=== PATIENT | female | born 1980 | race Caucasian/White ===

== ENCOUNTER 2022-10-06 17:18 | Emergency (ER) | payer BC, SELFPAY ==
[2022-10-06 17:30] VITALS: BP 139/83; PULSE 64; RESP 18; TEMP 36.3; O2SAT 98; BMI 43.8
--- NOTE | 2022-10-06 18:24 | CRLHL7_ITS ---
For Patients: As a result of the Century Cures Act, medical imaging exams and procedure reports are released immediately into your electronic medical record. You may view this report before your referring provider. If you have questions, please contact your health care provider. INDICATION: Right upper quadrant pain. TECHNIQUE: Ultrasound abdomen limited. Sonographic images of the right upper quadrant were obtained using carlos-scale and color Doppler images. COMPARISON: None. FINDINGS: Liver: Normal in size and echotexture. No masses. No intrahepatic biliary dilatation. Gallbladder: Gallbladder contracted. Mobile, echogenic gallstones. Gallbladder wall measures 5 mm. No pericholecystic fluid. Common bile duct: 3 mm. Pancreas: Unremarkable. Right kidney: Length 10.9 cm. Normal echotexture and cortex. No masses, stones, or hydronephrosis. Vasculature: Proximal abdominal aorta and IVC are unremarkable. Main portal vein patent with normal flow toward the liver. IMPRESSION: 1. Cholelithiasis with contracted gallbladder. No imaging evidence of acute cholecystitis or abnormal biliary dilatation. 2. Slightly echogenic liver parenchyma relative to the adjacent renal cortex, indicating possible mild fatty infiltration. Liver size upper range of normal. Dictated by Hakeem Rascon MD @ 10/06/2022 7:26:49 PM Dictated by: Hakeem Rascon MD @ 10/06/2022 19:26:55 (Electronically Signed)
--- NOTE | 2022-10-06 18:25 | ED_ITS ---
HPI - Abdominal Pain General Chief Complaint: Abdominal Pain Stated Complaint: Upper Abdominal Pain-getting worse post childbirth Time Seen by Provider: 10/06/22 18:06 History of Present Illness HPI narrative: This 42-year-old female comes in reporting upper epigastric pain that occurs at when taking any food and sometimes also wakes her up in the night. Currently she does not have any pain. She states this pain began about 12 weeks ago after delivering her baby. She delivered a child vaginally and thought that her abdominal discomfort was related to that and should resolve over time. This pain is not resolved and sometimes it seems worsened. She denies having any fevers, nausea, vomiting, diarrhea, or dysuria. Related Data Previous Rx's Medication Instructions Recorded hydrocodone 5 mg-acetaminophen 325 1 tab PO Q4-6H PRN pain #20 tabs 10/06/22 mg tablet ondansetron HCl 4 mg tablet 4 mg PO Q6H #20 tabs 10/06/22 Allergies Allergy/AdvReac Type Severity Reaction Status Date / Time No Known Drug Allergies Allergy Verified 10/06/22 17:33 Review of Systems Status of ROS Reports: 10 or more systems reviewed and unremarkable except as noted in History and below Narrative Constitutional: No fevers, no weight gain or loss. Eyes: No discharge. No vision changes. HENT: No congestion, no sore throat, no ear pain. Cardiovascular: No chest pain, no palpitations. Respiratory: No shortness of breath, no wheezes, no cough. Gastrointestinal: No vomiting, no diarrhea. Abdominal pain as described above. Genitourinary: No dysuria, no hematuria. Musculoskeletal: Normal range of motion. Skin: No rashes, no pruritis. Neurological: No dizziness, weakness, sensory change, speech change. Endo/Heme/Allergies: No bruising or bleeding. No polydipsia. Pysch: no suicidality, no anxiety, no insomnia. All other systems reviewed and are negative. PFSH PFSH Social History Smoking Status: Never smoker Do you use any of these nicotine containing products: None Second hand tobacco smoke exposure: No How often do you have a drink containing alcohol: never AUDIT-C Alcohol total score: 0 Non-prescribed substance use: denies use service: No Exam Narrative: Exam Narrative: Constitutional: Well-developed, well-nourished, no acute distress. HEENT: Normocephalic, atraumatic. Neck: Normal range of motion. Nontender. Supple. Heart: Regular. No murmurs. Normal rate. Intact distal pulses. Lungs: Clear to auscultation. No chest discomfort. No wheezes, rhonchi, or rales. Abdomen: Normal bowel sounds. Currently she does not have any abdominal pain. There is no rebound tenderness. Genitalia: Deferred. Back: No midline tenderness. Normal range of motion. Extremities: Normal range of motion. No injury. Skin: Intact. No rash. Warm. No erythema or pallor. Neurologic: No altered sensation. No weakness. Alert and oriented. Psychiatric: No suicidality. No anxiety or depression. No insomnia. Nursing notes and vitals signs are reviewed. Const: Vital Signs, click to edit/add: Vital Signs - 24 hr 10/06/22 17:30 Temperature 97.4 F L Pulse Rate [Pulse Oximeter] 64 Respiratory Rate 18 [facility] 139/83 Pulse Oximetry 98 Oxygen Delivery Me thod Room Air Course Vital Signs Vital signs: Initial Vital Signs Temperature 97.4 F L 10/06/22 17:30 Temperature Source Temporal Artery Scan 10/06/22 17:30 Pulse Rate 64 10/06/22 17:30 Pulse Rhythm 10/06/22 17:30 Pulse Strength 3+ Normal 10/06/22 17:30 Respiratory Rate 18 10/06/22 17:30 Blood Pressure 139/83 10/06/22 17:30 Blood Pressure Mean 101 10/06/22 17:30 Blood Pressure Position Sitting 10/06/22 17:30 Pulse Oximetry 98 10/06/22 17:30 Oxygen Delivery Method 10/06/22 17:30 Vital Signs Temperature 97.4 F L 10/06/22 17:30 Pulse Rate 64 10/06/22 17:30 Respiratory Rate 18 10/06/22 17:30 Blood Pressure 139/83 10/06/22 17:30 Pulse Oximetry 98 10/06/22 17:30 Oxygen Delivery Method 10/06/22 17:30 Temperature 97.4 F L 10/06/22 17:30 Pulse Rate 64 10/06/22 17:30 Respiratory Rate 18 10/06/22 17:30 Blood Pressure 139/83 10/06/22 17:30 Pulse Oximetry 98 10/06/22 17:30 Oxygen Delivery Method 10/06/22 17:30 MDM - Abdominal Pain MDM Narrative Medical decision making narrative: This patient comes in reporting postprandial right upper quadrant and upper epigastric pain for the past 12 weeks or so. Currently she is not having any pain and arrives with normal vital signs. An ultrasound of the right upper quadrant does show evidence of a stone in the gallbladder. There is no sign of cholecystitis or obstruction. I advised the patient to follow up with surgery Clinic and recommended cholecystectomy. She is okay to return home and currently is asymptomatic with normal vital signs. I did describe signs and symptoms that would indicate a need for return and re-evaluation. She did received prescription for [place] and Zofran. Discharge Plan Discharge Clinical Impression: Cholelithiasis Patient Disposition: Home, Self-Care Condition: Stable Additional Instructions: Take medication as needed and indicated. Follow up with surgery Clinic soon for plans regarding cholecystectomy. Call [phone] for appointment. Return if worsening symptoms happen. Prescriptions: New hydrocodone-acetaminophen 5-325 mg tablet 1 tab PO Q4-6H PRN (Reason: pain) Qty: 20 0RF ondansetron HCl 4 mg tablet 4 mg PO Q6H Qty: 20 0RF Stand Alone Forms: [facility] Info Instructions Discharge Comment: pt knows her prescriptions went to [facility] pharmacy
== END 2022-10-06 19:32 | disposition home or self-care (01) ==
LOC: ED 19:17
PROVIDERS: Emergency Provider Emergency Medicine Emergency Medical Services
DX: K80.20 Calculus of gallbladder without cholecystitis without obstruction (principal)
CPT/HCPCS: 76705; 99283; 99284

== ENCOUNTER 2022-10-20 09:44 | Outpatient (CLI) | payer BC, SELFPAY ==
[2022-10-20 14:37] LABS: Basophils Absolute Auto 0.04 K/uL (0.00-0.30); Basophils Percent Auto 0.5 % (0.0-3.0); Chloride* 107 mmol/L (96-114); Eosinophils Absolute Auto 0.13 K/uL (0.00-0.50); Eosinophils Percent Auto 1.6 % (0.0-7.0); Hematocrit 37.6 % (33.0-51.0); Hemoglobin* 11.8 gm/dL (12.0-16.0); Immature Granulocytes Abs Auto 0.01 K/uL (0.00-0.30); Immature Granulocytes Pct Auto 0.1 %; Lymphocytes Absolute Auto 1.97 K/uL (0.90-2.90); Lymphocytes Percent Auto 23.9 % (20-44); Mean Corpuscular HGB Conc 31 gm/dL (32-36); Mean Corpuscular Hemoglobin 27 pg (26-34); Mean Corpuscular Volume 86 fL (80-100); Monocytes Percent Auto 7.8 % (0.0-11.0); Neutrophils Absolute Auto 5.44 K/uL (1.7-7.0); Neutrophils Percent Auto 66.1 % (42.0-72.0); Platelet Count* 319 K/uL (140-440); Potassium* 4.4 mmol/L (3.6-5.1); RDW Coefficient of Variation % 15.9 % (11.5-15.5); Red Blood Count 4.35 m/uL (4.00-5.20); Sodium* 140 mmol/L (135-149); White Blood Count* 8.23 K/uL (4.50-11.00)
[2022-10-20 14:39] LABS: Slide Review Reflex No
[2022-10-20 14:40] LABS: Blood Urea Nitrogen* 10 mg/dL (5-24); Carbon Dioxide* 27 mmol/L (20-32); Creatinine* 0.8 mg/dL (0.5-1.5); Estimated Glomerular Filt Rate 95 ml/min; Glucose* 87 mg/dL (60-115)
[2022-10-20 14:41] LABS: Calcium* 9.3 mg/dL (8.4-10.6)
== END 2022-10-20 09:45 | disposition home or self-care (01) ==
PROVIDERS: PCP Surgery; Visit Provider Nurse Practitioner Family
DX: Z01.818 Encounter for other preprocedural examination (principal)
CPT/HCPCS: 80048; 85025

== ENCOUNTER 2022-10-21 09:43 | Day surgery (SDC) | payer BC, SELFPAY ==
[2022-10-21] VITALS (17 sets, daily range): BP systolic 106–134; BP diastolic 60–94; PULSE 66–90; RESP 16; TEMP 36.4–36.8; O2SAT 90–99; BMI 40.1
[2022-10-21] MEDS: SODIUM CHLORIDE 0.9 % (FLUSH) 10 ML SYRINGE IVF (10:15)
[2022-10-21] MEDS: LACTATED RINGERS 1000 ML 1,000 ML 100 ML IV ×2 (10:15→13:24)
--- NOTE | 2022-10-21 10:28 | SUR.PREOP ---
HOME COVID TEST NEGATIVE.
--- NOTE | 2022-10-21 11:25 | W.ANESCHARGE ---
Anesthesia Charges Start Date/Time Anesthesia Start Date: 10/21/22 Anesthesia Start Time: 12:49 Stop Date/Time Anesthesia Stop Date: 10/21/22 Anesthesia Stop Time: 14:00
[2022-10-21] MEDS: CEFAZOLIN 2 GM INJ IVP (13:00)
--- NOTE | 2022-10-21 13:55 | W.ANESCHARGE ---
Anesthesia Charges Start Date/Time Anesthesia Start Date: 10/21/22 Anesthesia Start Time: 12:49 Stop Date/Time Anesthesia Stop Date: 10/21/22 Anesthesia Stop Time: 14:00
--- NOTE | 2022-10-21 14:01 | P.GSOP_ITS ---
Operative Note Date of procedure: 10/21/22 Pre-op diagnosis: 1. Chronic cholecystitis. Post-op diagnosis: Same Type of Procedure: 1. Laparoscopic cholecystectomy. Indications: 42-year-old female 3 months was seen in clinic with recurrent episodes of right upper quadrant pain. Patient described the episodes as severe sharp pain that would decreased in intensity but never went away completely. She has been having daily episodes of pain and was having difficulty sleeping at night due to pain. She was not able to get comfortable. She did have nausea associated with her pain but no vomiting. She was seen in the emergency room for evaluation of this pain and an ultrasound was obtained that showed a contracted gallbladder with a gallstone. The gallbladder wall was measured at 5 mm in her common bile duct was measured at 3 mm. On clinical exam patient had discomfort to palpation in epigastrium but negative Smalls sign. Given patient's clinical history and her ultrasound findings, chronic cholecystitis/biliary dyskinesia was suspected, and laparoscopic cholecystectomy was recommended. The procedure was discussed in detail. The risks associated with the procedure including infection, bleeding, injury to intra-abdominal organs, and injury to the common bile duct were all discussed with the patient, and she agreed to proceed. Procedure Description: After discussing the risks and benefits of the procedure, the patient signed informed consent.? The operative site was marked and the patient was brought to the operating room and placed on the operating table in supine position.? Care was taken to pad the patient's pressure points.?? The patient was then intubated by anesthesia.?? The operative site was then prepped and draped in the usual sterile fashion.? A time-out was then performed. A 5-mm laparoscopy port was placed in the left upper quadrant guided by a 5-mm laparoscope placed into a translucent trochar.~ Passage through the layers of the abdominal wall was visualized with the laparoscope.~ A pneumoperitoneum was established. A 0-degree 5-mm laparoscope was advanced into the abdomen. The abdomen was briefly surveyed, and no adhesions were noted. A 10-mm port were placed infraumbilically and two more 5 mm ports were placed on the right under direct visualization by laparoscope. The camera was then changed to 10 mm 30- degree scope and placed into the abdomen through the 10 mm port. The left upper quadrant port entrance was examined and no injury to intra-abdominal organs was identified. The gallbladder was identified, the fundus grasped and retracted cephalad. No acute inflammation was noted around the gallbladder, and there were no adhesions. The infundibulum was grasped and retracted laterally, exposing the peritoneum overlying the triangle of Calot. This was then divided and exposed in a blunt fashion and with hook cautery. Common bile duct was not identified but care was taken not to injure it. The cystic duct was clearly identified and bluntly dissected circumferentially. Cystic artery was identified and tissues around it were dissected off. The cystic artery and the cystic duct were clearly going into the gallbladder. The cystic duct was then doubly ligated with surgical clips on the patient's side and singly clipped on the gallbladder side and divided. The cystic artery was then similarly ligated with clips and divided as well. The gallbladder was dissected from the liver bed in retrograde fashion using hookcautery. A small bleeding vessel was noted in the lateral gallbladder fossa and that was controlled with two 5 mm clips. The gallbladder was placed into an Endo-Catch bag and removed through the infraumbilical incision. Surgical site was examined for bleeding. No bleeding was seen in the surgical field. The fascia of the infraumbilical incision was then closed with 0-0 vicryl using Antony Ashley needle under direct visualization. Pneumoperitoneum was completely reduced after viewing removal of the trocars under direct vision. The skin was then closed with 4-0 monocryl and steristrips were applied. Instrument, sponge, and needle counts were correct at closure and at the conclusion of the case. The patient was transferred to PACU in stable condition.? Findings: No evidence of acute inflammation. Normal size cystic duct. Anesthesia: GETA Surgeon: Edison Santiago MD Estimated blood loss (mL): 5 Specimen: Gallbladder Condition: stable Disposition: PACU
[2022-10-21] MEDS: ONDANSETRON 2 MG/ML inj 4 MG IVP (14:35)
[2022-10-21] MEDS: METOCLOPRAMIDE HCL 5 MG/ML INJ 10 MG IVP (14:48)
== END 2022-10-21 16:21 | disposition home or self-care (01) ==
PROVIDERS: PCP Nurse Practitioner Family; Visit Provider Surgery
PROC: 0FT44ZZ Resection of Gallbladder, Percutaneous Endoscopic Approach (ICD-10-PCS; CPT 47562; principal; 2022-10-21 11:30)
DX: K80.10 Calculus of gallbladder with chronic cholecystitis without obstruction (principal)
CPT/HCPCS: 47562; 00790; 00840; 88304; J0330; J0690; J1100; J1170; J2250; J2405; J2704; J2765; J3010; J3490; J7120

== ENCOUNTER 2023-08-09 08:52 | Day surgery (SDC) | payer BC, SELFPAY ==
[2023-08-09] VITALS (10 sets, daily range): BP systolic 108–128; BP diastolic 51–87; PULSE 72–91; RESP 16–20; TEMP 36.1–36.4; O2SAT 95–100; BMI 43.3
--- NOTE | 2023-08-09 09:48 | ED.GENADULT ---
HPI - General Adult General Chief complaint: Dizziness/Vertigo Stated complaint: day 9 of menstruation, dizzy Time Seen by Provider: 08/09/23 09:43 Source: patient Mode of arrival: ambulatory Limitations: no limitations History of Present Illness HPI narrative: 43-year-old female presenting today with vaginal bleeding. Patient states that her period this month was 1 week late. When it started, it was normal however she is on day 9 of bleeding and in the last 24 hours bleeding has gotten progressively having ear. She states that she is passing clots the size of corners or half dollars. She feels lightheaded. She denies nausea or vomiting. No fevers or chills. She denies abdominal pain. She is not on control and is sexually active. Patient takes Wellbutrin for depression and anxiety, no other medications. Does have history of -induced hypertension and gestational diabetes. Related Data Home Medications Medication Instructions Recorded Confirmed bupropion HCl 100 mg tablet 100 mg PO DAILY 08/09/23 08/09/23 bupropion HCl 300 mg 24 hr tablet, 300 mg PO DAILY 08/09/23 08/09/23 extended release Previous Rx's Medication Instructions Recorded hydrocodone 5 mg-acetaminophen 325 1 - 2 tab PO Q6H PRN pain #25 tabs 10/21/22 mg tablet Allergies Allergy/AdvReac Type Severity Reaction Status Date / Time No Known Drug Allergies Allergy Verified 10/20/22 09:21 Review of Systems Status of ROS: Reports: 10 or more systems reviewed and unremarkable except as noted in History and below [facility] Medical History (Updated 08/09/23 @ 12:31 by Cassi Aden MD) induced hypertension ?O13.9 - Gestational [-induced] hypertension without significant proteinuria, unspecified trimester (ICD-10) Gestational diabetes ?O24.419 - Gestational diabetes mellitus in , unspecified control (ICD-10) Chronic cholecystitis ?K81.1 - Chronic cholecystitis (ICD-10) Depression with anxiety ?F41.8 - Other specified anxiety disorders (ICD-10) Surgical History (Updated 08/09/23 @ 12:31 by Cassi Aden MD) History of gynecologic surgery ?Z98.890 - Other specified postprocedural states (ICD-10) History of reversal of tubal ligation ?Z98.890 - Other specified postprocedural states (ICD-10) History of tubal ligation ?Z98.51 - Tubal ligation status (ICD-10) History of oral surgery ?Z98.890 - Other specified postprocedural states (ICD-10) History of repair of congenital cleft palate ?Z87.730 - Personal history of (corrected) cleft lip and palate (ICD-10) Family History Paternal Grandfather Heart disease Aunt Lung cancer Paternal Grandmother Diabetes Father Mental health disorder Mother Depression Anxiety Bipolar affect, depressed OCD (obsessive compulsive disorder) Social History Narrative: 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 3 children. No formal exercise. Non-smoker. Non-smoker. No alcohol. No illicit drug use. Smoking Status: Never smoker Do you use any of these nicotine containing products: None Second hand tobacco smoke exposure: No How often do you have a drink containing alcohol: never AUDIT-C Alcohol total score: 0 Non-prescribed substance use: denies use Caffeine: Yes Are you using contraception or practicing any form of control: No service: No Exam Narrative: Exam Narrative: Well-nourished well-developed patient in no acute distress. Alert and oriented. Answers questions appropriately. Mood is sad. Thoughts are goal oriented and rational. No tangential or magical thinking noted. Patient speaks in full sentences without needing to catch her breath. HEENT: Normocephalic atraumatic. Pupils are equally round reactive to light. Extraocular muscles are intact. Conjunctivae are moist without any icterus noted. Moist mucous membranes. Posterior pharynx is normal. Neck is soft without any lymphadenopathy or thyromegaly. No masses are appreciated. Cardiovascular: Heart is regular rate and rhythm S1 and S2 are present without any murmurs. Lungs: Clear to auscultation bilaterally no wheezes rhonchi or rales are appreciated. Patient takes deep breaths without any discomfort. Abdomen: Soft and nontender nondistended with normal bowel sounds. No guarding or rebound. Extremities: Bilateral lower extremities are without edema. Skin: Well perfused without any obvious rashes. Const: Vital Signs, click to edit/add: Vital Signs - 24 hr 08/09/23 09:09 08/09/23 10:25 Temperature 97 F L Pulse Rate [Pulse Oximeter] 81 76 Respiratory Rate 18 18 Blood Pressure [[facility] Upper Arm] 128/87 Pulse Oximetry 98 100 Oxygen Delivery Me thod Room Air Room Air Course Course ED Course: IV is established and fluids were started. Labs were drawn. Hemoglobin is 9. Last hemoglobin we have is from September of this year and it was 11.8. HCG is less than 3. Spoke to LILIA Royal on-call, who recommends a D&C. Pelvic ultrasound pending at this time with subsequent admission to the OR planned. Vital Signs Vital signs: Initial Vital Signs Temperature 97 F L 08/09/23 09:09 Temperature Source Temporal Artery Scan 08/09/23 09:09 Pulse Rate 81 08/09/23 09:09 Respiratory Rate 18 08/09/23 09:09 Blood Pressure 128/87 08/09/23 09:09 Blood Pressure Mean 100 08/09/23 09:09 Blood Pressure Position Sitting 08/09/23 09:09 Pulse Oximetry 98 08/09/23 09:09 Oxygen Delivery Method Room Air 08/09/23 09:09 Vital Signs Temperature 97 F L 08/09/23 09:09 Pulse Rate 81 08/09/23 09:09 Respiratory Rate 18 08/09/23 09:09 Blood Pressure 128/87 08/09/23 09:09 Pulse Oximetry 98 08/09/23 09:09 Oxygen Delivery Method Room Air 08/09/23 09:09 Temperature 97 F L 08/09/23 09:09 Pulse Rate 76 08/09/23 10:25 Respiratory Rate 18 08/09/23 10:25 Blood Pressure 128/87 08/09/23 09:09 Pulse Oximetry 100 08/09/23 10:25 Oxygen Delivery Method Room Air 08/09/23 10:25 Medical Decision Making MDM Narrative Medical decision making narrative: 43-year-old female with menorrhagia. Plan per above. Lab Data Lab results reviewed: Yes I reviewed the patient's lab results Labs: Lab Results 08/09/23 Range/Units 10:00 WBC 6.22 (4.50-11.00) K/uL RBC 4.21 (4.00-5.20) m/uL Hgb 9.0 L (12.0-16.0) gm/dL Hct 30.9 L (33.0-51.0) % MCV 73 L (80-100) fL MCH 21 L (26-34) pg MCHC 29 L (32-36) gm/dL RDW Coeff of Prateek 18.7 H (11.5-15.5) % Plt Count 407 (140-440) K/uL Neut % (Auto) 57.8 (42.0-72.0) % Lymph % (Auto) 32.5 (20-44) % Gaston % (Auto) 7.6 (0.0-11.0) % Eos % (Auto) 1.1 (0.0-7.0) % Baso % (Auto) 0.8 (0.0-3.0) % Neut # (Auto) 3.60 (1.7-7.0) K/uL Lymph # (Auto) 2.02 (0.90-2.90) K/uL Gaston # (Auto) 0.50 (0.00-0.90) K/UL Eos # (Auto) 0.07 (0.00-0.50) K/uL Baso # (Auto) 0.05 (0.00-0.30) K/uL Abs Immat Gran (auto) 0.01 (0.00-0.30) K/uL Imm/Tot Granulo (auto) 0.2 % Diff Slide Review Acceptable Review (Acceptable) Sodium 139 (135-149) mmol/L Potassium 4.3 (3.6-5.1) mmol/L Chloride 106 (96-114) mmol/L Carbon Dioxide 22 (20-32) mmol/L Anion Gap 11 (7-15) mEq/L BUN 13 (5-24) mg/dL Creatinine 0.7 (0.5-1.5) mg/dL Estimated Creat Clear 91.33 Estimated GFR 111 ml/min Glucose 95 (60-115) mg/dL Calcium 8.9 (8.4-10.6) mg/dL HCG, Quant < 2.39 mIU/mL Discharge Plan Discharge Clinical Impression: Menorrhagia Patient Disposition: XFER to OR Condition: Stable Follow Up/Referrals: Uma Carreon, PRODUCTION MATERIAL COORDINATOR, ACADEMIC SUCCESS COORDINATOR [Primary Care Provider] -
[2023-08-09] MEDS: 0.9 % SODIUM CHLORIDE 1000 ml 1,000 ML IV (09:55)
[2023-08-09 10:11] LABS: Basophils Absolute Auto 0.05 K/uL (0.00-0.30); Basophils Percent Auto 0.8 % (0.0-3.0); Eosinophils Absolute Auto 0.07 K/uL (0.00-0.50); Eosinophils Percent Auto 1.1 % (0.0-7.0); Hematocrit 30.9 % (33.0-51.0); Immature Granulocytes Abs Auto 0.01 K/uL (0.00-0.30); Immature Granulocytes Pct Auto 0.2 %; Lymphocytes Absolute Auto 2.02 K/uL (0.90-2.90); Lymphocytes Percent Auto 32.5 % (20-44); Mean Corpuscular HGB Conc 29 gm/dL (32-36); Mean Corpuscular Hemoglobin 21 pg (26-34); Mean Corpuscular Volume 73 fL (80-100); Monocytes Percent Auto 7.6 % (0.0-11.0); Neutrophils Percent Auto 57.8 % (42.0-72.0); Platelet Count* 407 K/uL (140-440); RDW Coefficient of Variation % 18.7 % (11.5-15.5); Red Blood Count 4.21 m/uL (4.00-5.20); White Blood Count* 6.22 K/uL (4.50-11.00)
[2023-08-09 10:13] LABS: Slide Review Reflex Yes
[2023-08-09 10:26] LABS: Chloride* 106 mmol/L (96-114); Potassium* 4.3 mmol/L (3.6-5.1); Sodium* 139 mmol/L (135-149)
[2023-08-09 10:29] LABS: Anion Gap 11 mEq/L (7-15); Blood Urea Nitrogen* 13 mg/dL (5-24); Calcium* 8.9 mg/dL (8.4-10.6); Carbon Dioxide* 22 mmol/L (20-32); Creatinine* 0.7 mg/dL (0.5-1.5); Est. Creatinine Clearance* 91.33; Estimated Glomerular Filt Rate 111 ml/min; Glucose* 95 mg/dL (60-115)
[2023-08-09 10:45] LABS: Slide Review Acceptable Review (Acceptable)
[2023-08-09 10:47] LABS: HCG Quantitative* < 2.39 mIU/mL
--- NOTE | 2023-08-09 10:57 | CRLHL7_ITS ---
For Patients: As a result of the Century Cures Act, medical imaging exams and procedure reports are released immediately into your electronic medical record. You may view this report before your referring provider. If you have questions, please contact your health care provider. INDICATION: Heavy vaginal bleeding COMPARISON: None. TECHNIQUE: TV: Transvaginal ultrasound of the pelvis was performed to better visualize the genitourinary organs, such as the ovaries and/or endometrium. Color flow imaging of the uterus and ovaries was performed. No duplex Doppler ordered or performed. FINDINGS: Reported last menstrual period: 07/31/2023. The uterus is normal in size and position and measures 8.1 x 5.5 x 5.8 cm. There is a 2.9 x 1.4 x 2.4 cm mass of the fundus. This mass is sub serosal and mildly heterogeneously hypoechoic. No significant distention of the uterine shape. Finding is consistent with a fibroid. The endometrial stripe measures 1.9 cm in double thickness. There is a 5 mm hyperechoic discrete nodule in the endometrium. There is another 1 cm hypoechoic discrete nodule. Appearance is most consistent with polyp. The cervix is normal. The right ovary measures 2.9 x 1.3 x 2.3 cm. Physiologic appearance without a dominant cystic lesion or solid ovarian/adnexal mass. Normal appearing color Doppler. The left ovary measures 3.2 x 2.1 x 2.8 cm. Physiologic appearance without a dominant cystic lesion or solid ovarian/adnexal mass. Normal appearing color Doppler. No free fluid. IMPRESSION: 1. There are 2 endometrial polyps, the largest of which measures 1 cm. 2. Small subserosal fibroid near the fundus. 3. Normal ovaries. Dictated by Monica Torre MD @ 08/09/2023 12:36:41 PM (Electronically Signed)
--- NOTE | 2023-08-09 12:20 | PM.GYNCN1 ---
ACQUISITION CONSULTANT - CN: HPI Data of Consult Date Seen: 08/09/23 Patient: Other Consult date: 08/09/23 Requesting Physician: Dr. Jami Alonso Primary Care Provider: Uma Carreon APRN, SENIOR IOS DEVELOPER Consult Narrative Reason for consult: vaginal bleeding Narrative: Apryl Grove is a 43 year old female who presented to the ER with heavy vaginal bleeding. She usually has regular menses, cycle length 26-28 days, with 3-5 days of flow. However, during this last cycle, she had menses begin 1 week late. She has had prolonged bleeding since. She is on day 9 of flow. She reports heavy bleeding with passage of clots. She reports using a tampon every 1-1/2 hours or so. However, she is also feeling lightheaded. She last ate last night, and had only a sip of water coming to the hospital. Obstetric and gynecologic history: [id number] this 3. 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 She has had no testing to determine cause of recurrent miscarriages. Pregnancies that were carried to term were complicated by hyperemesis, hypertension, and gestational diabetes. She had in vitro fertilization for her last . She had had a tubal ligation with Filshie clips followed by a reversal, and had IVF in 2021. Her other pregnancies were spontaneous. She did have an abnormal Pap during her last in 2021. She has a repeat Pap scheduled for at an outside clinic. This Pap was her 1st abnormal. She is no longer breast-feeding She does not have any history of sexually transmitted infections She is sexually active and using no contraception. Past medical history: Depression and anxiety, treated with Wellbutrin 300 mg daily Past surgical history: Laparoscopic cholecystectomy November 2022 Cleft lip and palate surgery Laparoscopic tubal ligation with Filshie clips, followed by reversal Family history: Positive for coronary artery disease No family history of colon or endometrial cancer Social history: She lives in [place] with her and 3 kids, ages 1 year, 16, and 18 years. Her oldest child is going to [employer] for veterinary school in the year to come. Her 16-year-old son is a sophomore at [place] [place] [employer]. 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 She does not smoke, drink alcohol, or use recreational drugs. Review of systems: Positive for lightheadedness Positive for heavy vaginal bleeding No recent illnesses cc:: CC: [facility] Medical History (Updated 08/09/23 @ 12:31 by Cassi Aden MD) induced hypertension ?O13.9 - Gestational [-induced] hypertension without significant proteinuria, unspecified trimester (ICD-10) Gestational diabetes ?O24.419 - Gestational diabetes mellitus in , unspecified control (ICD-10) Chronic cholecystitis ?K81.1 - Chronic cholecystitis (ICD-10) Depression with anxiety ?F41.8 - Other specified anxiety disorders (ICD-10) Surgical History (Updated 08/09/23 @ 12:31 by Cassi Aden MD) History of gynecologic surgery ?Z98.890 - Other specified postprocedural states (ICD-10) History of reversal of tubal ligation ?Z98.890 - Other specified postprocedural states (ICD-10) History of tubal ligation ?Z98.51 - Tubal ligation status (ICD-10) History of oral surgery ?Z98.890 - Other specified postprocedural states (ICD-10) History of repair of congenital cleft palate ?Z87.730 - Personal history of (corrected) cleft lip and palate (ICD-10) Family History Paternal Grandfather Heart disease Aunt Lung cancer Paternal Grandmother Diabetes Father Mental health disorder Mother Depression Anxiety Bipolar affect, depressed OCD (obsessive compulsive disorder) Social History Narrative: 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 3 children. No formal exercise. Non-smoker. Non-smoker. No alcohol. No illicit drug use. Smoking Status: Never smoker Do you use any of these nicotine containing products: None Second hand tobacco smoke exposure: No How often do you have a drink containing alcohol: never AUDIT-C Alcohol total score: 0 Non-prescribed substance use: denies use Caffeine: Yes Are you using contraception or practicing any form of control: No service: No Meds Home Medications and Allergies Home Medications Medication Instructions Recorded Confirmed Type bupropion HCl 100 mg tablet 100 mg PO DAILY 08/09/23 08/09/23 History bupropion HCl 300 mg 24 hr tablet, 300 mg PO DAILY 08/09/23 08/09/23 History extended release Allergies Allergy/AdvReac Type Severity Reaction Status Date / Time No Known Drug Allergies Allergy Verified 10/20/22 09:21 ACQUISITION CONSULTANT - Exam Physical Exam: Vital signs: Temp Pulse Resp BP Pulse Ox O2 Del Method 97 F L 76 18 128/87 100 Room Air 08/09/23 09:09 08/09/23 10:25 08/09/23 10:25 08/09/23 09:09 08/09/23 10:25 08/09/23 10:25 Narrative: Physical exam: General: No acute distress Psych: Alert and oriented x3, full affect HEENT: Normocephalic, atraumatic Neck: No cervical adenopathy, no thyromegaly Heart: Regular rate and rhythm, no murmur rub or gallop Lungs: Clear to auscultation bilaterally Abdomen: Normoactive bowel sounds, soft, no tenderness, rebound, or guarding, no masses, no hepatosplenomegaly, no hernias Lower extremities: No edema or erythema Pelvic exam: Mons normal, clitoris normal, urethral meatus normal. Labia minora and majora normal in appearance bilaterally. Perineum and anus normal appearance. Vaginal introitus normal appearance. Vagina pink and well rugated with moderate clotted blood in the vault. Cervix pink and without lesion. Bimanual exam reveals uterus to be soft, nontender, mobile, acutely retroverted, of normal size and texture. No palpable adnexal masses or tenderness. ACQUISITION CONSULTANT - Results Labs Labs: Short CBC 08/09/23 Range/Units 10:00 WBC 6.22 (4.50-11.00) K/uL Hgb 9.0 L (12.0-16.0) gm/dL Hct 30.9 L (33.0-51.0) % Plt Count 407 (140-440) K/uL BMP 08/09/23 10:00 Sodium 139 Potassium 4.3 Chloride 106 Carbon Dioxide 22 BUN 13 Creatinine 0.7 Glucose 95 Calcium 8.9 Last hemoglobin in our system was 11.8 in November, prior to her laparoscopic cholecystectomy Imaging Pelvic ultrasound: Attestation: I have reviewed the pertinent imaging results. My impression: Retroverted uterus, endometrial stripe 1.8 cm, 2 intracavitary lesions, suspected polyps Assessment and Plan Assessment and plan (1) Menorrhagia: Status: Acute Plan Currently with heavy, acute menstrual bleeding and symptomatic anemia. I recommend dilation and curettage for management. We discussed risks of procedure, including bleeding/hemorrhage, infection, uterine perforation, damage to internal organs, and risks of anesthesia. Consent form was reviewed with and signed by patient. I anticipate that I will use combined oral contraceptives after the D&C to manage her bleeding for at least the next month. I will have her follow up with me in clinic in 2 weeks to discuss results and long-term plan for management.
[2023-08-09] MEDS: LACTATED RINGERS 1000 ML 1,000 ML 100 ML IV (14:28)
--- NOTE | 2023-08-09 14:49 | W.ANESCHARGE ---
Anesthesia Charges Start Date/Time Anesthesia Start Date: 08/09/23 Anesthesia Start Time: 14:28 Stop Date/Time Anesthesia Stop Date: 08/09/23 Anesthesia Stop Time: 15:10
[2023-08-09] MEDS: LIDOCAINE 1% 5 ml (pf) 5 ML VIAL 20 ML INJECTION (14:56)
--- NOTE | 2023-08-09 15:15 | W.PM.GYNPROC ---
Procedure Note Date of procedure: 08/09/23 Pre-op diagnosis: Heavy menstrual bleeding, symptomatic anemia Post-op diagnosis: same Procedure: Dilation and curettage Anesthesia: MAC and local Complications: None Surgeon: Cassi Aden MD Estimated blood loss (mL): 10 Pathology: specimen obtained, sent to pathology (endometrial curettings, discussed and confirmed during postoperative debrief) Condition: stable Disposition: floor Findings: 1. Upon pelvic exam under anesthesia, the cervix and vagina were normal in appearance. Uterus was mobile and acutely retroverted, of normal size and texture. There were no palpable adnexal masses. 2. Abundant endometrial curettings were obtained. Procedure Description: Procedure in detail: Patient was taken to the operating room with IV running. She was positioned in dorsal lithotomy position with her legs fully supported in Yellofin stirrups. Monitored anesthesia care was administered. She was prepped and draped in the usual sterile fashion. Exam under anesthesia was performed for the above-noted findings. Speculum was inserted. Cervix visualized and grasped along the anterior lip with a single-tooth tenaculum. Cervix was noted to be slightly dilated, and accommodated the larger sharp curette without dilation. Circumferential, sharp curettage of the endometrial cavity was performed until a gritty texture was noted throughout. Curettings were sent to pathology. Tenaculum was removed from the anterior lip of the cervix. Hemostasis was noted. Patient tolerated procedure well. She was taken to recovery area in stable condition.
[2023-08-09] MEDS: KETOROLAC 30 MG/ML inj IVP (15:44)
[2023-08-09] MEDS: LACTATED RINGERS 1000 ML 1,000 ML 125 ML IV (15:52)
[2023-08-09] MEDS: ONDANSETRON 2 MG/ML inj 4 MG IVP (15:59)
--- NOTE | 2023-08-09 19:41 | PC.NURSE ---
Patient arrived to med/surg at 1510. waited in room for her to arrive. Patient pleasant, alert and oriented. Reported cramping pain in her abdomen rated 5/10. Scheduled Ketoralac effective. Given PRN Zofran for c/o nausea. Small emesis a short time after administration; no further nausea or vomiting since that time. Small amount of blood in sanitary pad. Tolerated fluids and regular diet. Ambulated well in hallway reporting that she felt good. MD updated and orders to D/C given. Discharge instructions reviewed with patient. Patient discharged at 7:10pm. Staff wheeled patient out to front entrance where family was waiting to accompany her home.
--- NOTE | 2023-08-09 21:02 | PC.NURSE ---
Dr Aden ok'd to give 4-8mg of Zofran. Unable to transcibe order in chart as pt was already dc'd.
== END 2023-08-09 19:10 | disposition home or self-care (01) ==
LOC: ED 13:47 → MS OUT 15:07 → MEDSURG 15:09
PROVIDERS: Emergency Provider Family Medicine; PCP Nurse Practitioner Family; Visit Provider Obstetrics & Gynecology
PROC: (CPT 58120; principal; 2023-08-09 15:30)
DX: N92.0 Excessive and frequent menstruation with regular cycle (principal); D50.0 Iron deficiency anemia secondary to blood loss (chronic); R42 Dizziness and giddiness
CPT/HCPCS: 58120; 00940; 36415; 76830; 80048; 84702; 85025; 86850; 86900; 86901; 88305; 95992; 99284; J1100; J1885; J2250; J2405; J2704; J3010; J3490; J7030; J7120

== ENCOUNTER 2023-11-16 13:40 | Emergency (ER) | payer BC, SELFPAY ==
[2023-11-16 13:49] VITALS: BP 143/100; PULSE 90; RESP 18; TEMP 36.4; O2SAT 98; BMI 40.9
--- NOTE | 2023-11-16 14:14 | ED_ITS ---
HPI - General Adult General Date Seen: 11/16/23 Chief complaint: Vaginal Bleeding Stated complaint: Heavy vaginal bleeding 2 days-ref by her OB Time Seen by Provider: 11/16/23 14:14 History of Present Illness HPI narrative: 43-year-old female with a history of anemia, menorrhagia, depression/anxiety, history of -induced hypertension and gestational diabetes, previous cholecystectomy. She is referred to the ER today by her OBGYN for evaluation of vaginal bleeding. 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 There are no recent gynecologic visits in the [place] EMR. We did check the [facility] care link through [employer] and she looks like she was seen [facility] by Dr. Acosta ([facility], [facility]) yesterday on 11/14 with an Ev isit. It looks like she was having fatty vaginal bleeding soaking through 2 pads or tampons per hour. There was another electronic visit at 9:00 a.m. this morning she was told the ED now. Further records indicate that she had a hysteroscopy and polypectomy in September. She had a 2 week postop visit on October 19. Blood pressure was 121/80. There are no recent lab values or hemoglobin values in her care link chart. Patient recalls that she did have a hemoglobin check in early September is part of her preop visit. Her hemoglobin was still approximately 9. She is on iron. She has not had a repeat hemoglobin since then. Review of [place] medical record shows that She was seen in the ER during July 2023 for vaginal bleeding. Hemoglobin was 9. Prior to that it was 11.8 in September 2022. She was not . She was taken to the OR by Dr. dAen, registered phlebotomist part time for D and C. Patient recalls that she had heavy vaginal bleeding in the end of July leading to her D&C here in [place]. After that she followed up with her regular ict project manager at the [facility] through [facility]. She had a follow- up ultrasound that showed uterine polyps. She underwent a uteri os could be on October 05. She recalls that prior to her ureteroscopy she had a preop physical and her hemoglobin remained approximately 9, even though she was on iron. After her uterus could be she had 5 days of heavy vaginal bleeding with then got better. She did well for about 11 days and then on postop day 14 she had recurrent bleeding that she thought was a. . It was heavier than normal and had clots but she and her Ob attributed that is clots to healing from her recent ureteroscopy. Her periods ended about the or day of October. She had a little bit of spotting about 2 weeks ago again. She did had her. Start again yesterday. She has been bleeding heavier today than previously. She is soaking through a heavy tampon at least every hour and had used extra heavy depends to deal with vaginal bleeding overnight. She starting to feel lightheaded. She short of breath with exertion. She also has a mild headache. No fever. She is having abdominal cramping but has been taking ibuprofen and feels that that is adequate for now. She did politely declines offered pain m eds. No urinary symptoms. No bowel symptoms. No other unusual bleeding or bruising. She is not anticoagulated. Related Data Home Medications Medication Instructions Recorded Confirmed bupropion HCl 100 mg tablet 100 mg PO DAILY 08/09/23 08/09/23 bupropion HCl 300 mg 24 hr tablet, 300 mg PO DAILY 08/09/23 08/09/23 extended release Previous Rx's Medication Instructions Recorded hydrocodone 5 mg-acetaminophen 325 1 - 2 tab PO Q6H PRN pain #25 tabs 10/21/22 mg tablet ferrous sulfate 325 mg (65 mg 325 mg PO Q OTHER DAY #30 tabs 08/09/23 iron) tablet (Steven-Time) ibuprofen 600 mg tablet 600 mg PO Q6H PRN #30 tabs 08/09/23 norethindrone acetate 1 mg-ethinyl 1 tab PO DAILY #63 tabs 08/09/23 estradiol 20 mcg tablet (Microgestin) medroxyprogesterone 10 mg tablet 20 mg (2 x 10 mg) PO DAILY 9 days 11/16/23 (Provera) #18 tabs Allergies Allergy/AdvReac Type Severity Reaction Status Date / Time No Known Drug Allergies Allergy Verified 10/20/22 09:21 [facility] Medical History (Updated 11/16/23 @ 17:08 by Gregg Prabhakar MD) induced hypertension ?O13.9 - Gestational [-induced] hypertension without significant proteinuria, unspecified trimester (ICD-10) Gestational diabetes ?O24.419 - Gestational diabetes mellitus in , unspecified control (ICD-10) Chronic cholecystitis ?K81.1 - Chronic cholecystitis (ICD-10) Depression with anxiety ?F41.8 - Other specified anxiety disorders (ICD-10) Surgical History (Updated 08/09/23 @ 12:31 by Cassi Aden MD) History of gynecologic surgery ?Z98.890 - Other specified postprocedural states (ICD-10) History of reversal of tubal ligation ?Z98.890 - Other specified postprocedural states (ICD-10) History of tubal ligation ?Z98.51 - Tubal ligation status (ICD-10) History of oral surgery ?Z98.890 - Other specified postprocedural states (ICD-10) History of repair of congenital cleft palate ?Z87.730 - Personal history of (corrected) cleft lip and palate (ICD-10) Family History Paternal Grandfather Heart disease Aunt Lung cancer Paternal Grandmother Diabetes Father Mental health disorder Mother Depression Anxiety Bipolar affect, depressed OCD (obsessive compulsive disorder) Social History Narrative: 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 3 children. No formal exercise. Non- smoker. Non-smoker. No alcohol. No illicit drug use. Smoking Status: Never smoker Do you use any of these nicotine containing products: None Second hand tobacco smoke exposure: No How often do you have a drink containing alcohol: never AUDIT-C Alcohol total score: 0 Non-prescribed substance use: denies use Caffeine: Yes Are you using contraception or practicing any form of control: No service: No Exam Narrative: Exam Narrative: Constitutional: Appears well-developed and well-nourished. Alert. Conversant. Non toxic. HENT: Head: Atraumatic. Nose: Nose normal. Mouth/Throat: Oral mucosa is clear and moist. no trismus. Pharynx normal. Tonsils symmetric. No tonsillar enlargement, erythema, or exudate. Eyes: Conjunctivae pale. EOM normal. Pupils equal, round, and reactive to light. No scleral icterus. Neck: Normal range of motion. Neck supple. No tracheal deviation present. Cardiovascular: Normal rate, regular rhythm. No gallop. No friction rub. No murmur heard. Symmetric radial artery pulses . Normal cap refill in her fingertips. Pulmonary/Chest: Effort normal. No stridor. No respiratory distress. No wheezes. No rales. No rhonchi . No tenderness. Abdominal: Soft. Bowel sounds normal. No distension. No mass. No rebound. No guarding. Bilateral lower quadrant tenderness. No definite uterine enlargement. No CVA tenderness. No upper tenderness. Pelvic: Performed with female transition advisor. Normal external he genitalia. Vaginal mucosa normal. There is active slow dark red liquid bleeding in the vaginal vault. No clots. Cervix is difficult to visualize but no large clots protruding from the cervix. Unable to visualize the entire posterior fornix due to anatomy. Bimanual exam not performed. Musculoskeletal: RUE: Normal range of motion. No tenderness. No deformity LUE: Normal range of motion. No tenderness. No deformity RLE: Normal range of motion. No edema. No tenderness. No deformity LLE: Normal range of motion. No edema. No tenderness. No deformity Neurological: Alert and oriented to person, place, and time. Normal strength. CN II-VII intact. No sensory deficit. GCS eye subscore is 4. GCS verbal subscore is 5. GCS motor subscore is 6. Normal coordination Skin: Skin is warm and dry. No rash noted. No pallor. Normal capillary refill. Psychiatric: Normal mood. Normal affect. Const: Vital Signs, click to edit/add: Vital Signs - 24 hr 11/16/23 13:49 11/16/23 15:23 Temperature 97.6 F Pulse Rate [Right Pulse Oximeter] 90 95 Respiratory Rate 18 20 Blood Pressure [Ri ght Upper Arm] 143/100 H 135/99 H Pulse Oximetry 98 97 Oxygen Delivery Me thod Room Air Room Air Course Course ED Course: Recheck-still having ongoing bleeding. Not as heavy as at home. Pelvic exam performed Reevaluation(s) Reevaluation #1: Recheck-still ongoing bleeding. No clots or large volume of blood coming out. Feeling somewhat better after receiving crystalloid. Reevaluation #2: Recheck-discussed with registered phlebotomist part time, . She recommends hormonal therapy with Provera. First dose administered here in the ER. Vital Signs Vital signs: Initial Vital Signs Temperature 97.6 F 11/16/23 13:49 Temperature Source Temporal Artery Scan 11/16/23 13:49 Pulse Rate 90 11/16/23 13:49 Respiratory Rate 18 11/16/23 13:49 Blood Pressure 143/100 H 11/16/23 13:49 Blood Pressure Mean 114 H 11/16/23 13:49 Blood Pressure Position Sitting 11/16/23 13:49 Pulse Oximetry 98 11/16/23 13:49 Oxygen Delivery Method Room Air 11/16/23 13:49 Vital Signs Temperature 97.6 F 11/16/23 13:49 Pulse Rate 90 11/16/23 13:49 Respiratory Rate 18 11/16/23 13:49 Blood Pressure 143/100 H 11/16/23 13:49 Pulse Oximetry 98 11/16/23 13:49 Oxygen Delivery Method Room Air 11/16/23 13:49 Temperature 97.6 F 11/16/23 13:49 Pulse Rate 95 11/16/23 15:23 Respiratory Rate 20 11/16/23 15:23 Blood Pressure 135/99 H 11/16/23 15:23 Pulse Oximetry 97 11/16/23 15:23 Oxygen Delivery Method Room Air 11/16/23 15:23 Medications Administered Medications: Discontinued Medications Generic Name Dose Route Start Last Admin Trade Name Freq PRN Reason Stop Dose Admin Lactated Ringer's 1,000 ml 11/16/23 15:53 11/16/23 16:24 Lactated Ringers 1000 Ml IV 11/16/23 15:54 1,000 ml ONCE ONE Administration Medical Decision Making MDM Narrative Medical decision making narrative: Very pleasant 43-year-old female returns to the ER today for evaluation of heavy vaginal bleeding. She has been soaking through 1 pad per hour since last night. She is feeling lightheaded and somewhat weak with exertion but has not had any syncope. Fortunately she is hemodynamically stable. We did obtain type and screen in anticipation for possible blood transfusion. Fortunately Laboratory workup actually shows reassuring hemoglobin-11.1 today. Platelet count is normal. INR is normal. She is not anticoagulated. No known history of coagulopathy. She does have ongoing active bleeding here in the ER but is not heavy or going through multiple pads per hour. Blood pressure remained stable but she is symptomatic with dizziness. Pelvic ultrasound shows a thickened endometrial lining at 1.6 cm with some vascularity. No other uterine mass. She is not . Discussed with our OB, Dr. Moran. She would recommend treatment with hormone therapy to try to slow down this heavy bleeding. She recommends Provera 60 mg p.o. today then 20 mg p.o. daily for 9 days to slow down the bleeding. Recommend outpatient follow-up with her primary registered phlebotomist part time. I discussed with the patient that at this point no indication for repeat D and C and that the risk of repeat surgical intervention at this point would outweigh the benefit. Ob is recommending hormonal therapy to stop the bleeding. Precautions for return to the ER with ongoing blood loss, worsening lightheadedness or dizziness, or any other concerns. Patient will call her OB office to arrange expeditious outpatient follow-up within the next 1-3 days. Lab Data Labs: Lab Results 11/16/23 Range/Units 14:48 WBC 9.08 (4.50-11.00) K/uL RBC 4.58 (4.00-5.20) m/uL Hgb 11.1 L (12.0-16.0) gm/dL Hct 36.7 (33.0-51.0) % MCV 80 (80-100) fL MCH 24 L (26-34) pg MCHC 30 L (32-36) gm/dL RDW Coeff of Prateek 22.7 H (11.5-15.5) % Plt Count 377 (140-440) K/uL Neut % (Auto) 59.2 (42.0-72.0) % Lymph % (Auto) 32.6 (20-44) % [place] % (Auto) 6.6 (0.0-11.0) % Eos % (Auto) 1.1 (0.0-7.0) % Baso % (Auto) 0.4 (0.0-3.0) % Neut # (Auto) 5.37 (1.7-7.0) K/uL Lymph # (Auto) 2.96 H (0.90-2.90) K/uL [place] # (Auto) 0.60 (0.00-0.90) K/UL Eos # (Auto) 0.10 (0.00-0.50) K/uL Baso # (Auto) 0.04 (0.00-0.30) K/uL Abs Immat Gran (auto) 0.01 (0.00-0.30) K/uL Imm/Tot Granulo (auto) 0.1 % INR 0.95 (0.91-1.10) Sodium 138 (135-149) mmol/L Potassium 3.6 (3.6-5.1) mmol/L Chloride 104 (96-114) mmol/L Carbon Dioxide 25 (20-32) mmol/L Anion Gap 9 (7-15) mEq/L BUN 14 (5-24) mg/dL Creatinine 0.8 (0.5-1.5) mg/dL Estimated Creat Clear 79.91 Estimated GFR 95 ml/min Glucose 97 (60-115) mg/dL Calcium 9.3 (8.4-10.6) mg/dL HCG, Qual Negative (Negative) Blood Type O Positive Antibody Screen NEGATIVE Discharge Plan Discharge Clinical Impression: Menorrhagia, Anemia Patient Disposition: Home, Self-Care Condition: Stable Instructions: Abnormal (Dysfunctional) Uterine Bleeding (ED), Menorrhagia (ED), Anemia (ED) Additional Instructions: Please return to the ER right away if you have any worsening bleeding, worsening lightheadedness, fainting, dizziness, weakness, or any concerns. Please start on the hormone-medroxyprogesterone 20 mg per day starting tomorrow. This should help your uterine lining stabilize and slough off, and slow down the bleeding. Call your OB office again to arrange a follow-up visit within the next 1-3 days. Prescriptions: New medroxyprogesterone [Provera] 10 mg tablet 20 mg PO DAILY 9 Days Qty: 18 0RF No Action hydrocodone-acetaminophen 5-325 mg tablet 1 - 2 tab PO Q6H PRN (Reason: pain) Qty: 25 0RF bupropion HCl 100 mg tablet 100 mg PO DAILY bupropion HCl 300 mg tablet extended release 24 hr 300 mg PO DAILY ferrous sulfate [Steven-Time] 325 mg (65 mg iron) tablet 325 mg PO Q OTHER DAY Qty: 30 0RF norethindrone ac-eth estradiol [Microgestin 09/12 ()] 1-20 mg-mcg tablet 1 tab PO DAILY Qty: 63 0RF ibuprofen 600 mg tablet 600 mg PO Q6H PRNQty: 30 0RF Follow Up/Referrals: Uma Carreon, BEAN SORTER, CONCRETE FINISHER [Primary Care Provider] - Stand Alone Forms: MyHealth Info Instructions
--- NOTE | 2023-11-16 14:32 | US_ITS ---
Patient: JAYDA JOHNSON Facility:?[facility] Patient ID:?[id number] Site Patient ID:?[id number]. Site :?[id number] Study:?US-Pelvis TV-11/16/2023 4:32:41 PM Ordering Physician:?ED Final Report: INDICATION: Abnormal vaginal bleeding. Status post D&C and hysteroscopy. TECHNIQUE: Transabdominal and transvaginal ultrasound examination of the pelvis was performed. Grayscale and color Doppler images were obtained. COMPARISON: Transvaginal pelvic ultrasound 08/09/2023. FINDINGS: Uterus: Measures 10.1 x 5.4 x 6.5 cm. Normal in echotexture. No suspicious masses. Endometrium: 16 mm. Isoechoic products within the endometrial and cervical canal may represent hemorrhagic blood products. Right Ovary: Measures 3.5 x 2.0 x 2.0 cm. Dominant avascular simple appearing follicle within the right ovary measuring 2.1 cm. No suspicious masses. Normal arterial and venous flow on color Doppler imaging. Left ovary: Measures 3.0 x 1.7 x 2.1 cm. No suspicious masses. Normal arterial and venous flow on color Doppler imaging. Cul-de-sac: No free fluid. IMPRESSION: No definite retained products of conception. There a is a small amount of isoechoic blood product within the cervical and endometrial canal. Dictated by Brett Kenney MD @ 11/16/2023 5:08:06 PM Signed by:?Brett Kenney MD @11/16/2023 5:08:06 PM (Electronic Signature)
[2023-11-16 14:57] LABS: Basophils Absolute Auto 0.04 K/uL (0.00-0.30); Basophils Percent Auto 0.4 % (0.0-3.0); Eosinophils Percent Auto 1.1 % (0.0-7.0); Hematocrit 36.7 % (33.0-51.0); Hemoglobin* 11.1 gm/dL (12.0-16.0); Immature Granulocytes Abs Auto 0.01 K/uL (0.00-0.30); Immature Granulocytes Pct Auto 0.1 %; Lymphocytes Absolute Auto 2.96 K/uL (0.90-2.90); Lymphocytes Percent Auto 32.6 % (20-44); Mean Corpuscular HGB Conc 30 gm/dL (32-36); Mean Corpuscular Hemoglobin 24 pg (26-34); Mean Corpuscular Volume 80 fL (80-100); Monocytes Percent Auto 6.6 % (0.0-11.0); Neutrophils Absolute Auto 5.37 K/uL (1.7-7.0); Neutrophils Percent Auto 59.2 % (42.0-72.0); Platelet Count* 377 K/uL (140-440); RDW Coefficient of Variation % 22.7 % (11.5-15.5); Red Blood Count 4.58 m/uL (4.00-5.20); White Blood Count* 9.08 K/uL (4.50-11.00)
[2023-11-16 15:07] LABS: Slide Review Reflex No
[2023-11-16 15:23] VITALS: BP 135/99; PULSE 95; RESP 20; O2SAT 97
[2023-11-16 15:26] LABS: Chloride* 104 mmol/L (96-114); Potassium* 3.6 mmol/L (3.6-5.1); Sodium* 138 mmol/L (135-149)
[2023-11-16 15:28] LABS: INR 0.95 (0.91-1.10); Prothrombin Time 13.2 Seconds
[2023-11-16 15:29] LABS: Anion Gap 9 mEq/L (7-15); Blood Urea Nitrogen* 14 mg/dL (5-24); Calcium* 9.3 mg/dL (8.4-10.6); Carbon Dioxide* 25 mmol/L (20-32); Creatinine* 0.8 mg/dL (0.5-1.5); Est. Creatinine Clearance* 79.91; Estimated Glomerular Filt Rate 95 ml/min; Glucose* 97 mg/dL (60-115)
[2023-11-16] MEDS: LACTATED RINGERS 1000 ML IV (16:24)
[2023-11-16 16:44] LABS: HCG Qualitative Serum* Negative (Negative)
== END 2023-11-16 17:54 | disposition home or self-care (01) ==
PROVIDERS: Emergency Provider Emergency Medicine; PCP Nurse Practitioner Family
DX: D64.9 Anemia, unspecified (principal); N92.0 Excessive and frequent menstruation with regular cycle
CPT/HCPCS: 36415; 76830; 80048; 84703; 85025; 85610; 86850; 86900; 86901; 99283; J7120